=== PATIENT | female | born 1985 | race Two or more races ===

== ENCOUNTER 2018-10-08 16:14 | Emergency (ER) | payer BC, OTHER ==
[2018-10-08 16:47] VITALS: BP 101/55
--- NOTE | 2018-10-08 17:36 | UC ---
Abdominal Pain Female HPI - HPI Summary HPI Summary: 32 year old female with no PMH, n o abdominal GI history presents iwth diarrhea , abdominal cramping, low grade fever starting this AM. Patient reports 2 episodes of bloody diarrhea followed by 6 watery stools. Tried pepto-bismuth without benefit. no vomiting, + mild nausea. able to hold down fluids, but not drinking much due to increasing abdominal "rumbling" and diarrhea no prior episodes, no new foods - History of Current Complaint Chief Complaint: UCGI Stated Complaint: FEVER, DIGESTIVE ISSUE Time Seen by Provider: 10/08/18 17:05 Hx Obtained From: Patient Hx Last Menstrual Period: IUD ?: No Onset/Duration: Sudden Onset Severity Initially: Moderate Severity Currently: Moderate Pain Intensity: 8 Pain Scale Used: 0-10 Numeric Location: Diffuse - throughout abdomen Radiates: No Character: Cramping Aggravating Factor(s): Food - water Allergies/Adverse Reactions: Allergies Allergy/AdvReac Type Severity Reaction Status Date / Time No Known Allergies Allergy Verified 10/08/18 16:47 Home Medications: Home Medications Bismuth Subsalicylate [Pepto-Bismol] 262 mg PO Q6HR PRN 10/08/18 [History Confirmed 10/08/18] PMH/Surg Hx/FS Hx/Imm Hx Previously Healthy: Yes - Surgical History Surgical History: None - Family History Known Family History: Positive: Non-Contributory - Social History Alcohol Use: Occasionally Substance Use Type: None Smoking Status (MU): Never Smoked Tobacco Review of Systems All Other Systems Reviewed And Are Negative: Yes Constitutional: Positive: Negative Skin: Positive: Negative Psychological: Positive: Negative Is Patient Immunocompromised?: No Physical Exam Triage Information Reviewed: Yes Appearance: Well-Appearing, No Pain Distress, Well-Nourished Vital Signs: Initial Vital Signs Temp 99.6 F 10/08/18 16:41 Pulse 112 10/08/18 16:41 Resp 12 10/08/18 16:41 BP 101/55 10/08/18 16:41 Pulse Ox 100 10/08/18 16:41 Vital Signs Reviewed: Yes Eyes: Positive: Conjunctiva Clear Respiratory: Positive: Chest non-tender Abdomen Description: Positive: No Organomegaly, Soft, Other: - mild tenderness to moderate palpation diffusely throughout abdomen. - murphys, - psoas, - obturator. Negative: CVA Tenderness (R), CVA Tenderness (L), Distended, Guarding, Hepatomegaly, Splenomegaly Bowel Sounds: Positive: Hyperactive - diffuse Musculoskeletal Exam: Normal Psychological Exam: Normal Skin Exam: Normal Abd Pain Female Course/Dx - Course Course Of Treatment: acute diarrhea, possible e coli due to bloody diarrhea, > 8 stools/ treated with abx, increased fluids, stressed importance f increased fluids. - Differential Dx/Diagnosis Provider Diagnosis: Diarrhea Discharge - Sign-Out/Discharge Documenting (check all that apply): Patient Departure All imaging exams completed and their final reports reviewed: No Studies - Discharge Plan Condition: Good Disposition: HOME Prescriptions: Ciprofloxacin TAB* [Cipro 500 MG TAB*] 500 mg PO BID #6 tab Patient Education Materials: Dehydration (ED), Acute Diarrhea (ED) Referrals: Nedra Carter DO [Primary Care Provider] - Additional Instructions: - Increase fluid intake - ANtibiotics as directed x 3 days - Stool kit given- please return with stool sample if unable to obtain at urgent care - Go to ER with lightheadedness, increased stooling > 10/ day, unable to hold down fluids - Tyenol as needed for pain - FOllow up with primary physician within 3-4 days for re-evaluation - Billing Disposition and Condition Condition: GOOD Disposition: Home
== END 2018-10-08 17:55 | disposition home or self-care (01) ==
LOC: UCEAST 16:14
DX: R19.7 Diarrhea, unspecified (principal)
CPT/HCPCS: 99212; G0463